=== PATIENT | female | born 2000 | race Caucasian/White ===

== ENCOUNTER 2022-12-03 18:56 | Day surgery (SDC) | payer OTHER, SELFPAY ==
[2022-12-03 19:07] VITALS: BP 109/45; PULSE 62; RESP 14; TEMP 36.7; O2SAT 97; BMI 24.9
--- NOTE | 2022-12-03 19:24 | CRLHL7_ITS ---
For Patients: As a result of the Century Cures Act, medical imaging exams and procedure reports are released immediately into your electronic medical record. You may view this report before your referring provider. If you have questions, please contact your health care provider. INDICATION: . TECHNIQUE: CT abdomen and pelvis without contrast. COMPARISON: None. FINDINGS: Limited evaluation of the intra-abdominal solid organs without IV contrast. Lower chest: Unremarkable. Liver: Normal in size and attenuation. No suspicious masses. Gallbladder and bile ducts: No stones or inflammation. No biliary dilatation. Pancreas: Unremarkable. No mass or inflammation. Spleen: Normal in size. No masses. Adrenal glands: Normal in size. No nodules. Kidneys: Normal in size. No suspicious masses, stones, or hydronephrosis. GI tract: No bowel obstruction. There is an appendicolith near the distal appendix measuring up to 7 millimeters. Distal to this, the appendix is dilated measuring up to 13 millimeters in diameter with mildly thickened, enhancing wall. Periappendiceal fat stranding is noted. Vasculature: Abdominal aorta is normal in caliber. Lymph nodes: No lymphadenopathy. Peritoneum/Abdominal Wall: Small free fluid in the pelvis. No evidence of intra-abdominal free air. No focal drainable fluid collections. Pelvis: Bladder is collapsed. Uterus is unremarkable. Bones: Unremarkable for age. IMPRESSION: Acute uncomplicated appendicitis. Please note that all CT scans at this facility use dose modulation, iterative reconstruction, and/or weight-based dosing when appropriate to reduce radiation dose to as low as reasonably achievable. Dictated by William Gallardo MD @ 12/03/2022 9:25:56 PM (Electronically Signed)
--- NOTE | 2022-12-03 19:25 | ED.ABDPAIN ---
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 She comes in because of right-sided abdominal pain that began about 3 hours or 4 hours prior to arrival. She does not describe any injury event that triggered this pain. She reports pain in the right flank and in the right abdomen radiating down into her right lower quadrant. She does not have any prior health history. She does not have any family history of kidney stone. She states that the pain seems worse with movement at times but when it was more severe she was squirming and trying to find a position to get comfortable. She does not report any nausea, vomiting, or diarrhea. She has not had any fevers. Related Data Home Medications Medication Instructions Recorded Confirmed escitalopram oxalate 10 mg tablet 10 mg PO DAILY 12/03/22 12/03/22 (Lexapro) loratadine 10 mg tablet (Claritin) 10 mg PO DAILY 12/03/22 12/03/22 Allergies Allergy/AdvReac Type Severity Reaction Status Date / Time No Known Drug Allergies Allergy Verified 12/03/22 19:07 Review of Systems Status of ROS Reports: 10 or more systems reviewed and unremarkable except as noted in History and below Narrative Constitutional: No fevers, no weight gain or loss. Eyes: No discharge. No vision changes. HENT: No congestion, no sore throat, no ear pain. Cardiovascular: No chest pain, no palpitations. Respiratory: No shortness of breath, no wheezes, no cough. Gastrointestinal: Right lower quadrant abdominal pain as described above. Genitourinary: No dysuria, no hematuria. Musculoskeletal: Normal range of motion. Skin: No rashes, no pruritis. Neurological: No dizziness, weakness, sensory change, speech change. Endo/Heme/Allergies: No bruising or bleeding. No polydipsia. Pysch: no suicidality, no anxiety, no insomnia. All other systems reviewed and are negative. PFSH PFSH Social History Smoking Status: Never smoker How often do you have a drink containing alcohol: never AUDIT-C Alcohol total score: 0 Non-prescribed substance use: denies use Exam Narrative: Exam Narrative: Constitutional: Well-developed, well-nourished, no acute distress. HEENT: Normocephalic, atraumatic. Neck: Normal range of motion. Nontender. Supple. Heart: Regular. No murmurs. Normal rate. Intact distal pulses. Lungs: Clear to auscultation. No chest discomfort. No wheezes, rhonchi, or rales. Abdomen: Normal bowel sounds. Tenderness in the right flank and right abdomen extending into the right lower quadrant. No rebound tenderness. Genitalia: Deferred. Back: No midline tenderness. Normal range of motion. Extremities: Normal range of motion. No injury. Skin: Intact. No rash. Warm. No erythema or pallor. Neurologic: No altered sensation. No weakness. Alert and oriented. Psychiatric: No suicidality. No anxiety or depression. No insomnia. Nursing notes and vitals signs are reviewed. Const: Vital Signs, click to edit/add: Vital Signs - 24 hr 12/03/22 19:07 Temperature 98.0 F Pulse Rate [Pulse Oximeter] 62 Respiratory Rate 14 Blood Pressure [Ri ght Upper Arm] 109/45 L Pulse Oximetry 97 Oxygen Delivery Me thod Room Air Course Vital Signs Vital signs: Initial Vital Signs Temperature 98.0 F 12/03/22 19:07 Temperature Source Temporal Artery Scan 12/03/22 19:07 Pulse Rate 62 12/03/22 19:07 Pulse Rhythm Regular 12/03/22 19:07 Respiratory Rate 14 12/03/22 19:07 Blood Pressure 109/45 L 12/03/22 19:07 Blood Pressure Mean 66 L 12/03/22 19:07 Blood Pressure Position Sitting 12/03/22 19:07 Pulse Oximetry 97 12/03/22 19:07 Oxygen Delivery Method Room Air 12/03/22 19:07 Vital Signs Temperature 98.0 F 12/03/22 19:07 Pulse Rate 62 12/03/22 19:07 Respiratory Rate 14 12/03/22 19:07 Blood Pressure 109/45 L 12/03/22 19:07 Pulse Oximetry 97 12/03/22 19:07 Oxygen Delivery Method Room Air 12/03/22 19:07 Temperature 98.0 F 12/03/22 19:07 Pulse Rate 62 12/03/22 19:07 Respiratory Rate 14 12/03/22 19:07 Blood Pressure 109/45 L 12/03/22 19:07 Pulse Oximetry 97 12/03/22 19:07 Oxygen Delivery Method Room Air 12/03/22 19:07 MDM - Abdominal Pain MDM Narrative Medical decision making narrative: This patient comes in with right-sided abdominal pain. This pain has some features that are suspicious for kidney stone, appendicitis, or ovarian cyst. She did have a CT scan of the abdomen and pelvis without contrast and this does show evidence of appendicitis with an appendicolith. I spoke to the surgeon on-call who will arrange for surgery tomorrow. The patient does have von Willebrand's disease and states that she needs to have a medicine available or given an order to do surgery. She discovered this bleeding disorder when she had tonsillectomy and had persistent bleeding. She states that she had another minor dental procedure and did receive a medication prior to it to treat her bleeding disorder. The patient will find out if she happens to have type 3 von Willebrand's disease. In this case her surgical planning would be more complicated. From her report it sounds like it is type 1 or type 2. I spoke with the hospitalist second watch sergeant who arrange for admission. Lab Data Labs: Lab Results 12/03/22 Range/Units 19:35 Urine Color Yellow (Yellow) Urine Appearance Slightly Cloudy A (Clear) Urine pH 6.0 (5.0-8.5) Ur Specific [place] 1.020 (1.000-1.030) Urine Protein Negative (Negative) Urine Glucose (UA) Negative (Negative) Urine Ketones Negative (Negative) Urine Blood Negative (Negative) Urine Nitrite Negative (Negative) Urine Bilirubin Negative (Negative) Urine Urobilinogen 0.2 (0.2-1.0) Ur Leukocyte Esterase Negative (Negative) Urine RBC 0-2 (0-2) Urine WBC 0-2 (0-5) Ur Squamous Epith Cells Few (None-Few) Urine Bacteria None (None) Imaging Data CT scan - abdomen: Radiologist's impression: Acute uncomplicated appendicitis. Discharge Plan Discharge Clinical Impression: Acute appendicitis Patient Disposition: Admitted As Observation Condition: Unchanged Prescriptions: No Action escitalopram oxalate [Lexapro] 10 mg tablet 10 mg PO DAILY loratadine [Claritin] 10 mg tablet 10 mg PO DAILY Follow Up/Referrals: Provider,Not a Local [Primary Care Provider] -
[2022-12-03 19:49] LABS: Appearance Urine Slightly Cloudy (Clear); Bilirubin Urine Negative (Negative); Blood Urine Negative (Negative); Color Urine Yellow (Yellow); Glucose Urine Negative (Negative); Ketones Urine Negative (Negative); Leukocyte Esterase Urine Negative (Negative); Nitrite Urine Negative (Negative); Protein Urine Negative (Negative); Urobilinogen Urine 0.2 (0.2-1.0)
[2022-12-03 19:57] LABS: RBC Urine 0-2 (0-2); Squamous Epithelial Cell Urine Few (None-Few); WBC Urine 0-2 (0-5)
[2022-12-03 22:20] VITALS: BP 118/67; PULSE 83; RESP 16; TEMP 36.8; O2SAT 98
--- NOTE | 2022-12-03 22:31 | P.IMHP_ITS ---
Hospitalist- H&P: HPI History of Present Illness Date Seen: 12/03/22 Chief complaint: R side abdominal pain Narrative: Nadya Chirinos is a 22 year old female past medical history significant for depression/anxiety, seasonal allergies is admitted to the medical floor from the ED for acute uncomplicated appendicitis. Patient reports onset right lower quadrant pain earlier today. Denies fevers. Has had no nausea or vomiting. No bowel movement today. Denies change in urination. 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 Nonsmoker. Denies alcohol use. Review of Systems Narrative: REVIEW OF SYSTEMS: Complete review of systems performed and negative unless otherwise stated in HPI or below. PFSH PFS Medical History Anxiety ?F41.9 - Anxiety disorder, unspecified (ICD-10) Depression ?F32.A - Depression, unspecified (ICD-10) Surgical History [place] teeth extracted ?K08.409 - Partial loss of teeth, unspecified cause, unspecified class (ICD- 10) Hx of tonsillectomy ?Z90.89 - Acquired absence of other organs (ICD-10) Social History What is your current living situation?: I presently have a place to live Problems where you live: no known problems Problems where you live details: N/A In the past 12 months, utilities in danger of being shut off: no In past 12 months, lack of transportation kept you from medical appts, meetings, work, or getting things needed for daily living: no In the past 12 mos, have been you worried that your food would run out before you had money to buy more?: never true In the past 12 mos, the food you bought just didn't last and you didn't have money to buy more?: never true Highest level of school completed/degree received: some college, no degree Smoking Status: Never smoker How often do you have a drink containing alcohol: never AUDIT-C Alcohol total score: 0 Non-prescribed substance use: denies use Caffeine: Yes How often does anyone, including family, friends and others, physically hurt you : never How often does anyone, including family, friends and others, insult or talk down to you: never How often does anyone, including family, friends and others, threaten you with harm: never How often does anyone, including family, friends and others, scream or curse at you: never service: No Meds Home Medications and Allergies Home Medications Medication Instructions Recorded Confirmed Type escitalopram oxalate 10 mg tablet 10 mg PO DAILY 12/03/22 12/03/22 History (Lexapro) loratadine 10 mg tablet (Claritin) 10 mg PO DAILY 12/03/22 12/03/22 History Allergies Allergy/AdvReac Type Severity Reaction Status Date / Time No Known Drug Allergies Allergy Verified 12/03/22 19:07 Exam Narrative: Exam Narrative: PHYSICAL EXAM General: Very pleasant, conversant, NAD HEENT: Normocephalic, atraumatic, sclera white, EOMI, oral mucosa moist Cardiovascular: RRR, S1S2. No pitting edema Pulmonary: CTA bilaterally without rhonchi, rales, expiratory wheezes. No dyspnea Abdominal: Soft, nondistended, mild tenderness right lower quadrant, no guarding Neurological: Alert, answering questions appropriately, cranial nerves intact, no focal findings Extremities: No gross joint deformity or swelling. AROMI. Neurovascularly intact Skin: Warm, dry. Const: Vital Signs, click to edit/add: Vital Signs - 24 hr 12/03/22 19:07 Temperature 98.0 F Pulse Rate [Pulse Oximeter] 62 Respiratory Rate 14 Blood Pressure [Ri ght Upper Arm] 109/45 L Pulse Oximetry 97 Oxygen Delivery Me thod Room Air Hospitalist - H&P: Result Labs Labs: Urine 12/03/22 Range/Units 19:35 Urine Color Yellow (Yellow) Urine Appearance Slightly Cloudy A (Clear) Urine pH 6.0 (5.0-8.5) Ur Specific [place] 1.020 (1.000-1.030) Urine Protein Negative (Negative) Urine Glucose (UA) Negative (Negative) CBC and BMP reviewed, unremarkable. Qualitative HCG pending Imaging CT scan - abdomen: Radiologist's impression: CT abdomen and pelvis without contrast. COMPARISON: None. FINDINGS: Limited evaluation of the intra-abdominal solid organs without IV contrast. Lower chest: Unremarkable. Liver: Normal in size and attenuation. No suspicious masses. Gallbladder and bile ducts: No stones or inflammation. No biliary dilatation. Pancreas: Unremarkable. No mass or inflammation. Spleen: Normal in size. No masses. Adrenal glands: Normal in size. No nodules. Kidneys: Normal in size. No suspicious masses, stones, or hydronephrosis. GI tract: No bowel obstruction. There is an appendicolith near the distal appendix measuring up to 7 millimeters. Distal to this, the appendix is dilated measuring up to 13 millimeters in diameter with mildly thickened, enhancing wall. Periappendiceal fat stranding is noted. Vasculature: Abdominal aorta is normal in caliber. Lymph nodes: No lymphadenopathy. Peritoneum/Abdominal Wall: Small free fluid in the pelvis. No evidence of intra-abdominal free air. No focal drainable fluid collections. Pelvis: Bladder is collapsed. Uterus is unremarkable. Bones: Unremarkable for age. IMPRESSION: Acute uncomplicated appendicitis. Results CBC w Differential: WBC 8.27 K/uL (4.50-11.00) RBC 4.56 m/uL (4.00-5.20) Hemoglobin 13.5 gm/dL (12.0-16.0) Hematocrit 39.9 % (33.0-51.0) MCV 88 fL (80-100) MCH 30 pg (26-34) MCHC 34 gm/dL (32-36) Platelet Count 234 K/uL (140-440) Neutrophils (%) (Auto) 61.4 % (42.0-72.0) Neutrophils # (Auto) 5.08 K/uL (1.7-7.0) Lymphocytes (%) (Auto) 29.7 % (20-44) Monocytes (%) (Auto) 6.2 % (0.0-11.0) Eosinophils (%) (Auto) 1.5 % (0.0-7.0) Basophils (%) (Auto) 0.6 % (0.0-3.0) Assessment and Plan Assessment and plan (1) Acute appendicitis: Problem comment: -ED provider discussed with Dr. Chawla, general surgery, plan to admit overnight, to OR tomorrow morning -NPO midnight, gentle IV hydration -pain and nausea management as needed -hCG qualitative pending Status: Acute Plan CODE: Full VTE PPX: Ambulatory Disposition: Observation, discharge pending General Surgery recommendations
[2022-12-03 22:36] LABS: Chloride* 102 mmol/L (96-114); Potassium* 3.7 mmol/L (3.6-5.1); Sodium* 139 mmol/L (135-149)
[2022-12-03 22:37] VITALS: BP 121/74; PULSE 74; RESP 16; TEMP 36.8; O2SAT 97; BMI 25.2
[2022-12-03 22:39] LABS: Anion Gap 12 mEq/L (7-15); Basophils Absolute Auto 0.05 K/uL (0.00-0.30); Basophils Percent Auto 0.6 % (0.0-3.0); Blood Urea Nitrogen* 13 mg/dL (5-24); Carbon Dioxide* 25 mmol/L (20-32); Creatinine* 0.7 mg/dL (0.5-1.5); Eosinophils Absolute Auto 0.12 K/uL (0.00-0.50); Eosinophils Percent Auto 1.5 % (0.0-7.0); Est. Creatinine Clearance* 109.78; Estimated Glomerular Filt Rate 126 ml/min; Glucose* 81 mg/dL (60-115); Hematocrit 39.9 % (33.0-51.0); Hemoglobin* 13.5 gm/dL (12.0-16.0); Immature Granulocytes Abs Auto 0.05 K/uL (0.00-0.30); Immature Granulocytes Pct Auto 0.6 %; Lymphocytes Absolute Auto 2.46 K/uL (0.90-2.90); Lymphocytes Percent Auto 29.7 % (20-44); Mean Corpuscular HGB Conc 34 gm/dL (32-36); Mean Corpuscular Hemoglobin 30 pg (26-34); Mean Corpuscular Volume 88 fL (80-100); Monocytes Percent Auto 6.2 % (0.0-11.0); Neutrophils Absolute Auto 5.08 K/uL (1.7-7.0); Neutrophils Percent Auto 61.4 % (42.0-72.0); Platelet Count* 234 K/uL (140-440); RDW Coefficient of Variation % 11.4 % (11.5-15.5); Red Blood Count 4.56 m/uL (4.00-5.20); White Blood Count* 8.27 K/uL (4.50-11.00)
[2022-12-03 22:40] LABS: Calcium* 9.4 mg/dL (8.4-10.6)
[2022-12-03 22:49] VITALS: BP 121/74; PULSE 73; RESP 16; TEMP 36.3; O2SAT 97
[2022-12-03 22:56] LABS: Slide Review Reflex No
[2022-12-03 23:17] LABS: Ur HCG Qualitative* Negative (Negative)
[2022-12-04] VITALS (18 sets, daily range): BP systolic 95–116; BP diastolic 55–72; PULSE 47–96; RESP 12–20; TEMP 36.3–36.8; O2SAT 92–98
[2022-12-04] MEDS: LACTATED RINGERS 1000 ML 1,000 ML 75 ML IV ×2 (00:09→11:49)
[2022-12-04] MEDS: OXYCODONE 5 MG TABLET PO ×2 (05:11→08:42)
--- NOTE | 2022-12-04 06:20 | PC.NURSE ---
Admitted to floor at 2230 with dx appendicitis with planned surgical intervention 12/[address] Chawla. Alert and oriented x 4, accompanied by 2 friends. Pain reported to right upper and lower quadrant that radiates to right flank, pain rated 4/10, per patient this is an acceptable pain level. Denies any nausea, vomiting or difficulty drinking fluids. Abdomen is soft, tender to palpation. NPO at 0000. At 0510 patient reporting increased pain to right AC IV, hand sign writer stopped fluids and confirmed placement of IV which appeared to be correctly position. Patient request to remove due to continued pain to site. IV replaced to left wrist, saline locked at this time due to pain with fluids, MD updated.patient required oxy 5mg due to IV site pain, medication and warm pack effective. Continent of bladder and bowel, denies any chest pain or shortness of breath.
--- NOTE | 2022-12-04 08:15 | P.GSCN_ITS ---
History of Present Illness Consult details Date Seen: 12/04/22 Consult date: 12/04/22 Narrative: The patient is a 22-year-old female who presented to the emergency room yesterday with acute onset right lower quadrant pain. this came on fairly suddenly while she was at soccer practice. This is worsened with activity. She has not had any fevers. No vomiting but she did have nausea this morning. No change in urinary symptoms. She has a history of von Willebrand's disease. This was discovered after she bled postoperatively twice after tonsillectomy when she was 14 years old. she was found to have type 1 and her father has brought a sheet that states that she has mild type 1 von Willebrand's. she was recommended to get TXA and or aminocaproic acid and with surgery. [facility] Medical History (Updated 12/04/22 @ 11:10 by Karol Chawla MD) Von willebrand disease, type 1 ?D68.01 - Von Willebrand disease, type 1 (ICD-10) Anxiety ?F41.9 - Anxiety disorder, unspecified (ICD-10) Depression ?F32.A - Depression, unspecified (ICD-10) Surgical History [place] teeth extracted ?K08.409 - Partial loss of teeth, unspecified cause, unspecified class (ICD- 10) Hx of tonsillectomy ?Z90.89 - Acquired absence of other organs (ICD-10) Social History (Updated 12/04/22 @ 11:10 by Karol Chawla MD) Narrative: She is a jesús in college. She is an [place] major at [employer] What is your current living situation?: I presently have a place to live Problems where you live: no known problems Problems where you live details: N/A In the past 12 months, utilities in danger of being shut off: no In past 12 months, lack of transportation kept you from medical appts, meetings, work, or getting things needed for daily living: no In the past 12 mos, have been you worried that your food would run out before you had money to buy more?: never true In the past 12 mos, the food you bought just didn't last and you didn't have money to buy more?: never true Highest level of school completed/degree received: some college, no degree Smoking Status: Never smoker How often do you have a drink containing alcohol: never AUDIT-C Alcohol total score: 0 Non-prescribed substance use: denies use Caffeine: Yes How often does anyone, including family, friends and others, physically hurt you : never How often does anyone, including family, friends and others, insult or talk down to you: never How often does anyone, including family, friends and others, threaten you with harm: never How often does anyone, including family, friends and others, scream or curse at you: never service: No Meds Home Medications and Allergies Home Medications Medication Instructions Recorded Confirmed Type loratadine 10 mg tablet (Claritin) 10 mg PO DAILY 12/03/22 12/03/22 History albuterol sulfate 90 mcg/actuation 2 puff inhalation Q4H PRN 12/04/22 12/04/22 History aerosol inhaler escitalopram oxalate 20 mg tablet 20 mg PO DAILY 12/04/22 12/04/22 History Allergies Allergy/AdvReac Type Severity Reaction Status Date / Time No Known Drug Allergies Allergy Verified 12/03/22 19:07 Exam Narrative: Exam Narrative: General appearance: somewhat sleepy, cooperative, and in no distress Eyes: PERRLA, eye lids clear, and sclera white HENT Head: Normocephalic Ears: External ears normal Pulmonary: Breathing nonlabored on room air Cardiovascular Heart: Regular rate Extremities: warm and well perfused Gastrointestinal Abdominal: no scars. Tender in the right lower quadrant with rebound Musculoskeletal: Extremities: Upper: Both upper extremities have normal joint range of motion and intact strength. Lower: Both lower extremities have normal joint range of motion and intact strength. Skin: Normal skin color, texture, and turgor. Neurologic: No focal deficits Psychiatric: Alert, oriented, cooperative, normal affect. Const: Vital Signs, click to edit/add: Vital Signs - 24 hr 12/03/22 19:07 12/03/22 22:20 12/03/22 22:37 Temperature 98.0 F 98.3 F 98.2 F Pulse Rate [Left P ulse Oximeter] 74 Pulse Rate [Pulse Oximeter] 62 83 Respiratory Rate 14 16 16 Blood Pressure [Le ft Arm] 121/74 Blood Pressure [Ri ght Upper Arm] 109/45 L 118/67 Pulse Oximetry 97 98 97 Oxygen Delivery Me thod Room Air Room Air Room Air 12/03/22 22:37 12/03/22 22:49 12/03/22 22:49 Temperature 97.4 F L Pulse Rate [Left P ulse Oximeter] 73 Pulse Rate [Pulse Oximeter] Respiratory Rate 16 16 Blood Pressure [Le ft Arm] 121/74 Blood Pressure [Ri ght Upper Arm] Pulse Oximetry 97 97 97 Oxygen Delivery Me thod Room Air Room Air Room Air 12/04/22 03:00 Temperature 98.1 F Pulse Rate [Left P ulse Oximeter] 72 Pulse Rate [Pulse Oximeter] Respiratory Rate 18 Blood Pressure [Le ft Arm] 108/62 Blood Pressure [Ri ght Upper Arm] Pulse Oximetry 93 Oxygen Delivery Me thod Room Air Results Labs Labs: White blood cell count within normal limits. Imaging CT scan - pelvis: report reviewed and image reviewed Additional studies: TECHNIQUE: CT abdomen and pelvis without contrast. COMPARISON: None. FINDINGS: Limited evaluation of the intra-abdominal solid organs without IV contrast. Lower chest: Unremarkable. Liver: Normal in size and attenuation. No suspicious masses. Gallbladder and bile ducts: No stones or inflammation. No biliary dilatation. Pancreas: Unremarkable. No mass or inflammation. Spleen: Normal in size. No masses. Adrenal glands: Normal in size. No nodules. Kidneys: Normal in size. No suspicious masses, stones, or hydronephrosis. GI tract: No bowel obstruction. There is an appendicolith near the distal appendix measuring up to 7 millimeters. Distal to this, the appendix is dilated measuring up to 13 millimeters in diameter with mildly thickened, enhancing wall. Periappendiceal fat stranding is noted. Vasculature: Abdominal aorta is normal in caliber. Lymph nodes: No lymphadenopathy. Peritoneum/Abdominal Wall: Small free fluid in the pelvis. No evidence of intra-abdominal free air. No focal drainable fluid collections. Pelvis: Bladder is collapsed. Uterus is unremarkable. Bones: Unremarkable for age. IMPRESSION: Acute uncomplicated appendicitis. Please note that all CT scans at this facility use dose modulation, iterative reconstruction, and/or weight-based dosing when appropriate to reduce radiation dose to as low as reasonably achievable. Dictated by William Gallardo MD @ 12/03/2022 9:25:56 PM Assessment and Plan Assessment and plan (1) Von willebrand disease, type 1: Status: Acute (2) Acute appendicitis: Problem comment: -ED provider discussed with Dr. Chawla, general surgery, plan to admit overnight, to OR tomorrow morning -NPO midnight, gentle IV hydration -pain and nausea management as needed -hCG qualitative pending Status: Acute Plan The patient is a 22-year-old female with acute appendicitis. We discussed that appendectomy is the preferred treatment for this. This can most often be done laparoscopically. We discussed risks and benefits of the procedure including but not limited to bleeding, need for conversion to open, risk of injury to other structures, need for possible bowel resection, and abscess formation. The patient understands that the risk of abscess is higher if the appendix is perforated. For that reason, we generally keep patient is in the hospital on IV antibiotics until vital signs and white blood cell count had normalized. We also discussed recovery including 2 weeks of lifting restrictions. Because of her history of mild von Willebrand's disease we will plan on Administration of tranexamic acid. I also discussed with her and her parents that we could additionally use DDAVP as well as topical hemostatic agents if there is significant bleeding, however generally appendectomy is fairly low risk. They are agreeable to proceed and we will plan on surgery at the next OR availability.
[2022-12-04] MEDS: PROCHLORPERAZINE 5 MG/ML VIAL IV (08:43)
[2022-12-04] MEDS: PIPERACILLIN/TAZOBACTAM 3.375 GM INJ IVPB (11:25)
[2022-12-04] MEDS: BUPIVACAINE 0.25% 30 ML INJECTION (11:37)
--- NOTE | 2022-12-04 11:55 | W.ANESCHARGE ---
Anesthesia Charges Start Date/Time Anesthesia Start Date: 12/04/22 Anesthesia Start Time: 11:20 Stop Date/Time Anesthesia Stop Date: 12/04/22 Anesthesia Stop Time: 12:14
--- NOTE | 2022-12-04 12:10 | P.GSOP_ITS ---
Operative Note Pre-op diagnosis: Acute appendicitis Post-op diagnosis: Same Type of Procedure: Laparoscopic cholecystectomy Indications: The patient is a 22-year-old female who presented to the emergency department with right lower quadrant abdominal pain. Workup revealed acute appendicitis with appendicolith. I recommended cholecystectomy and she agreed to proceed. Procedure Description: After discussing the risks and benefits of the procedure, the patient signed informed consent.? The operative site was marked and the patient was brought to the operating room and placed on the operating table in supine position.? Care was taken to pad the patient's pressure points.?? The patient was then Intubated by anesthesia.?? The operative site was then prepped and draped in the usual sterile fashion.? A time-out was then performed. The patient does have a history of type 1 von Willebrand's disease. 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 Entrance to the abdomen was obtained via a 5 mm optical trocar in the left upper quadrant. The abdomen was insufflated and briefly surveyed for any signs of injury. There were none. A 12 mm port was placed inferior to the umbilicus as well as a 5 mm port in the left lower quadrant. Both were done under direct vision. The patient was then placed in Trendelenburg position with the right side up. The small bowel was gently moved out of the way and the appendix was in view. This was obviously distended and inflamed, however there was no perforation noted. The appendix was grasped and pulled into view. A mesenteric window was created between the base of the appendix and the mesoappendix. An Endo-KIERRA purple load stapler was then used to transect the appendix at its base. A vascular load stapler was then used to divide the mesoappendix. The staple lines were inspected for bleeding. There was none. The appendix was then removed from the abdomen using an Endo-Catch bag. The specimen was sent to pathology. The site was then examined again to ensure hemostasis. This appeared excellent, however a piece of Surgicel was placed over the staple lines. The ports were then removed and the abdomen desufflated. The 12 mm port site fascia was closed with 0 Vicryl. The skin was then closed with absorbable sub cuticular suture. Sterile dressings were then applied. Instrument sponge and needle counts were correct at the end of the case. The patient was then woken and transported to the PACU in stable condition. ? The patient tolerated the procedure well. Findings: Acute appendicitis without perforation. Anesthesia: GETA Surgeon: Karol Chawla MD Estimated blood loss (mL): 5 Specimen: Appendix Condition: stable Disposition: PACU Date of procedure: 12/04/22
[2022-12-04] MEDS: MEPERIDINE 25 MG/ML INJ 12.5 MG IVP (12:15)
[2022-12-04] MEDS: fentaNYL 100 MCG/2 ML inj 50 MCG IVP ×2 (12:17→12:25)
--- NOTE | 2022-12-04 12:22 | W.ANESCHARGE ---
Anesthesia Charges Start Date/Time Anesthesia Start Date: 12/04/22 Anesthesia Start Time: 11:20 Stop Date/Time Anesthesia Stop Date: 12/04/22 Anesthesia Stop Time: 12:14
[2022-12-04] MEDS: HYDROmorphone 0.5 mg/0.5 ml inj IVP (13:17)
[2022-12-04] MEDS: HYDROCODONE-ACETAMIN 5-325 MG 1 TAB PO (15:20)
--- NOTE | 2022-12-04 19:56 | PC.NURSE ---
Pt tolerating PO pain meds per MAR, regular diet w/o N/V. Up independent to BR post surgical. DC instructions given verbally and written to pt and mother. Pt will return to recovery at parents home. All questions answered. IV was DC'd, cath tip intact. Pt and mother aware of infection s/s and when to contact surgeon. Follow up appt scheduled and pt is aware of location, date, and time. Pt discharged at 1700. She was wheeled out to front door via staff accompanied by her parents.
--- NOTE | 2022-12-16 10:34 | P.GSOP_ITS ---
Operative Note Pre-op diagnosis: Acute appendicitis Post-op diagnosis: Same Type of Procedure: Laparoscopic appendectomy Indications: The patient is a 22-year-old female who presented to the emergency department with right lower quadrant abdominal pain. Workup revealed acute appendicitis with appendicolith. I recommended appendectomy and she agreed to proceed. Procedure Description: After discussing the risks and benefits of the procedure, the patient signed informed consent.? The operative site was marked and the patient was brought to the operating room and placed on the operating table in supine position.? Care was taken to pad the patient's pressure points.?? The patient was then intubated by anesthesia.?? The operative site was then prepped and draped in the usual sterile fashion.? A time-out was then performed. The patient does have a history of type 1 von Willebrand's disease. 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 Entrance to the abdomen was obtained via a 5 mm optical trocar in the left upper quadrant. The abdomen was insufflated and briefly surveyed for any signs of injury. There were none. A 12 mm port was placed inferior to the umbilicus as well as a 5 mm port in the left lower quadrant. Both were done under direct vision. The patient was then placed in Trendelenburg position with the right side up. The small bowel was gently moved out of the way and the appendix was in view. This was obviously distended and inflamed, however there was no perforation noted. The appendix was grasped and pulled into view. A mesenteric window was created between the base of the appendix and the mesoappendix. An Endo-KIERRA purple load stapler was then used to transect the appendix at its base. A vascular load stapler was then used to divide the mesoappendix. The staple lines were inspected for bleeding. There was none. The appendix was then removed from the abdomen using an Endo-Catch bag. The specimen was sent to pathology. The site was then examined again to ensure hemostasis. This appeared excellent, however a piece of Surgicel was placed over the staple lines. The ports were then removed and the abdomen desufflated. The 12 mm port site fascia was closed with 0 Vicryl. The skin was then closed with absorbable subcuticular suture. Sterile dressings were then applied. Instrument sponge and needle counts were correct at the end of the case. The patient was then woken and transported to the PACU in stable condition. ? The patient tolerated the procedure well. Findings: Acute appendicitis without perforation Anesthesia: JOSE Surgeon: Karol Chawla MD Estimated blood loss (mL): 5 Specimen: Appendix Condition: stable Disposition: PACU Date of procedure: 12/04/22
== END 2022-12-04 17:00 | disposition home or self-care (01) ==
LOC: ED 21:57 → MEDSURG 22:35 → SS 12-04 11:35 → MEDSURG 12-04 11:38
PROVIDERS: Physician Assistant; Emergency Provider Emergency Medicine Emergency Medical Services; Visit Provider Surgery
PROC: 0DTJ4ZZ Resection of Appendix, Percutaneous Endoscopic Approach (ICD-10-PCS; CPT 44970; principal; 2022-12-04 09:45)
DX: K35.80 Unspecified acute appendicitis (principal); D68.01 Von Willebrand disease, type 1
CPT/HCPCS: 44970; 00840; 36415; 74176; 80048; 81001; 81025; 85025; 88304; 99284; A9270; G0378; J0330; J0665; J0780; J1170; J2175; J2543; J2710; J3010; J7120

== ENCOUNTER 2022-12-17 10:09 | Outpatient (CLI) | payer OTHER, SELFPAY | END 2022-12-17 10:10 | disposition home or self-care (01) | LOC: NFLDREF 12-20 05:57 | PROVIDERS: Visit Provider Surgery | DX: R30.0 Dysuria (principal); Z48.89 Encounter for other specified surgical aftercare | CPT/HCPCS: 87086 ==